=== PATIENT | female | born 1980 | race Caucasian/White ===

== ENCOUNTER 2017-12-31 14:53 | Emergency (ER) | payer SELFPAY ==
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
[2017-12-31] MEDS ORDERED: Ketorolac Tromethamine 30 MG/ML VIAL ONE (19:32)
== END 2017-12-31 18:57 | disposition home or self-care (01) ==
LOC: ERS 14:53
DX: S06.0X9A Concussion with loss of consciousness of unspecified duration, initial encounter (principal); S70.01XA Contusion of right hip, initial encounter; F17.210 Nicotine dependence, cigarettes, uncomplicated; Z79.899 Other long term (current) drug therapy; V89.2XXA Person injured in unspecified motor-vehicle accident, traffic, initial encounter
CPT/HCPCS: 70450; 72170; 99406; J1885